=== PATIENT | male | born 1985 | race African-American/Black ===

== ENCOUNTER 2020-05-24 06:54 | Emergency (ER) | payer SELFPAY ==
--- NOTE | 2020-05-24 08:26 | RAD ---
CHEST 1 VIEW: HISTORY: Unresponsive. COMPARISON: Radiograph of 08/05/2016. FINDINGS: Lungs are clear. No pneumothorax or effusion. Cardiac silhouette and mediastinal contours are withi n normal limits. No acute osseous abnormality. IMPRESSION: No acute intrathoracic abnormality. POS: [facility]
[2020-05-24 11:01] LABS: Clarity Clear (Clear); Specific Gravity, Urine 1.032 (1.002-1.036)
[2020-05-24 11:02] LABS: Bacteria/HPF Rare-Few HPF (None Seen); Bilirubin Negative (Negative); Blood, Urine Small (Negative); Glucose, Urine (Dipstick) 100 mg/dL (Negative); Ketone, Urine Negative (Negative); Leukocyte Negative (Negative); Nitrite Negative (Negative); Protein, Urine (Dipstick) 30 mg/dL (Neg-Trace); RBC/HPF 0-3 HPF (0-3); Squamous Epithelial 0-3 HPF (0-3); Urobilinogen 0.2 mg/dL (Less than 2); WBC/HPF 0-3 HPF (0-3); pH, Urine 5.5 (5.0-9.0)
[2020-05-24 11:04] LABS: BUN (Urea Nitrogen) 21 mg/dL (8.9-20.6); Calc. Creatinine Clearance 0 mL/min (70-130); Carbon Dioxide 25 mmol/L (22-29); Chloride 106 mmol/L (98-107); Estimated GFR-MDRD 90; Glucose 115 mg/dL (70-105); Potassium 3.5 mmol/L (3.5-5.1); Sodium 144 mmol/L (136-145)
[2020-05-24 11:05] LABS: ALT (SGPT) 34 U/L (8-55); AST (SGOT) 27 U/L (5-34); Albumin 3.9 g/dL (3.5-5.0); Alkaline Phosphatase 65 U/L (40-110); Bilirubin, Total 0.6 mg/dL (0.2-1.2); Calcium 8.8 mg/dL (7.8-10.44); Globulin 3.4 g/dL (2.4-3.5); Magnesium 1.9 mg/dL (1.6-2.6); Protein, Total 7.3 g/dL (6.0-8.3)
[2020-05-24 11:06] LABS: Acetaminophen Less than 6.0 mcg/mL (10.0-30.0); Alcohol Less than 10 mg/dL (Less than 10); Salicylate Less than 8.0 mg/dL (15.0-30.0)
[2020-05-24 11:07] LABS: Amphetamine Not Detected (NotDetected); Anion Gap 17 mmol/L (10-20); Benzodiazepine Screen Not Detected (NotDetected); Cocaine Metabolite Screen Not Detected (NotDetected); Methamphetamine Not Detected (NotDetected); Opiate Screen Not Detected (NotDetected); Phencyclidine (PCP) Not Detected (NotDetected); THC/Cannabinoid Screen Not Detected (NotDetected)
[2020-05-24 11:08] LABS: Barbiturates Screen Not Detected (NotDetected); Medtox Control Line Valid? VALID (VALID); Methadone Not Detected (NotDetected); Oxycodone Screen Not Detected (NotDetected); Tricyclic Screen Not Detected (NotDetected)
[2020-05-24 11:10] LABS: %Basophils 2.1 % (0.0-1.0); %Eosinophils 0.5 % (0.0-10.0); %Lymphocytes 32.8 % (21.0-51.0); %Monocytes 6.3 % (0.0-10.0); %Neutrophils 58.3 % (42.0-75.0); Mean Corpuscular HGB CONC 30.9 g/dL (32.0-36.0); Mean Corpuscular Hemoglobin 24.9 pg (27.0-31.0); Mean Corpuscular Volume 80.5 fL (78.0-98.0); Mean Platelet Volume 8.1 fL (7.4-10.4); Platelet Count 218 thou/uL (130-400); RBC Distribution Width 12.4 % (11.5-14.5); Red Blood Cell (RBC) Count 5.25 mill/uL (4.70-6.10); White Blood Cell (WBC) Count 9.2 thou/uL (4.8-10.8)
[2020-05-24 11:11] LABS: #Basophils 0.2 thou/uL (0.0-0.2); #Eosinphils 0.5 thou/uL (0.0-0.7); #Lymphocytes 3.1 thou/uL (1.20-3.40); #Neutrophils 5.4 thou/uL (1.40-6.50)
[2020-05-24 11:14] LABS: Lactic Acid 1.8 mmol/L (0.5-2.2)
== END 2020-05-24 07:24 | disposition home or self-care (01) ==
LOC: MADERS 06:54
DX: Z00.00 Encounter for general adult medical examination without abnormal findings (principal); R29.700 NIHSS score 0; F17.210 Nicotine dependence, cigarettes, uncomplicated
CPT/HCPCS: 71045; 80053; 80306; 80307; 81001; 83605; 83735; 85025

== ENCOUNTER 2020-07-18 17:10 | Emergency (ER) | payer SELFPAY ==
[2020-07-18] MEDS ORDERED: Ibuprofen 400 MG TAB ONE (18:19)
[2020-07-18] MEDS ORDERED: Amoxicillin/Potassium Clav 875 MG TAB ONE (18:19)
[2020-07-18] MEDS ORDERED: Acetaminophen 500 MG TAB ONE (18:20)
== END 2020-07-18 18:25 | disposition home or self-care (01) ==
LOC: MADERS 17:10
DX: K04.7 Periapical abscess without sinus (principal); F17.210 Nicotine dependence, cigarettes, uncomplicated
CPT/HCPCS: 99282